=== PATIENT | male | born 1970 | race Two or more races ===

== ENCOUNTER → 2018-02-08 | Outpatient (CLI) | payer OTHER ==
[~2018-02-08] MED LIST: LEVSIN0.125 MG PO; PREVACID15 MG PO; PROTONIX40 MG PO; ZANTAC300 MG PO
== END | disposition home or self-care (01) ==
LOC: LAB 11:20
DX: R22.2 Localized swelling, mass and lump, trunk (principal); Z51.81 Encounter for therapeutic drug level monitoring

== ENCOUNTER 2018-02-10 09:14 | Outpatient (CLI) | payer OTHER | END 2018-02-10 09:22 | disposition home or self-care (01) | LOC: TOM 09:14 | DX: R22.2 Localized swelling, mass and lump, trunk (principal) ==

== ENCOUNTER 2020-01-27 11:17 | Emergency (ER) | payer OTHER ==
[~2020-01-27] VITALS: Ht 165.1 cm; Wt 74.4 kg
[2020-01-27] MEDS ORDERED: ZOLOFT100 MG (11:25)
[2020-01-27] MEDS ORDERED: CLONAZEPAM0.5 MG PO (11:25)
== END 2020-01-27 14:21 | disposition home or self-care (01) ==
LOC: ER 11:17
DX: M94.0 Chondrocostal junction syndrome [Tietze] (principal)

== ENCOUNTER 2020-07-12 18:04 | Emergency (ER) | payer OTHER ==
[~2020-07-12] VITALS: Ht 165.1 cm; Wt 79.4 kg
[~2020-07-12 18:04] MED LIST changes: +CLONAZEPAM0.5 MG PO; +ZOLOFT100 MG
== END 2020-07-12 21:39 | disposition home or self-care (01) ==
LOC: ER 18:04
DX: S02.2XXA Fracture of nasal bones, initial encounter for closed fracture (principal); S01.22XA Laceration with foreign body of nose, initial encounter; S01.122A Laceration with foreign body of left eyelid and periocular area, initial encounter; W26.8XXA Contact with other sharp object(s), not elsewhere classified, initial encounter; Y93.89 Activity, other specified; Y92.89 Other specified places as the place of occurrence of the external cause; Y99.8 Other external cause status